=== PATIENT | male | born 1950 | race Caucasian/White ===

== ENCOUNTER 2017-08-03 07:45 | Inpatient (IN) ==
[2017-07-28 14:44] LABS: Appearance,Urine CLEAR; Bilirubin,Urine NEG (NEG); Color,Urine YELLOW; Glucose,Urine (UA) NEGATIVE (NEG); Leukocyte Esterase,Urine NEG /uL (NEG); Protein,Urine NEG (NEG); Specific Gravity,Urine 1.014 (1.000-1.035); Urine Blood NEG mg/dL (<0.03); Urobilinogen,Urine NEG (NEG)
[2017-07-28 16:18] LABS: Basophils # (Auto) 0.1 K/mcL (0.0-0.3); Basophils % (Auto) 0.9 % (0.0-2.0); Eosinophils # (Auto) 0.1 K/mcL (0.0-0.7); Eosinophils % (Auto) 2.2 % (0.0-7.0); Granulocytes % (Auto) 75.2 % (38.0-78.0); Lymphocytes # (Auto) 1.1 K/mcL (1.5-4.8); Mean Cell Volume 95.3 fL (80.0-100.0); Mean Corpuscular Hemoglobin 32.4 pg (26.0-34.0); Monocytes # (Auto) 0.4 K/mcL (0.1-0.9); Monocytes % (Auto) 5.7 % (1.0-12.0); Platelet Count 243 K/mcL (140-440); RBC 4.58 M/mcL (4.50-5.90); Red Cell Distribution Width 12.8 % (11.5-14.5)
[2017-07-28 17:05] LABS: Blood Urea Nitrogen 19 mg/dl (8-23)
[~2017-08-03 07:45] MED LIST: CELECOXIB 200 MG CAPSULE PO SCH; KETOROLAC 30 MG, ROPIVACAINE HCL/PF 49.5 ML, EPINEPHrine 0.5 MG, 0.9 % SODIUM CHLORIDE ... IV SCH; PREGABALIN 75 MG CAPSULE PO SCH; ceFAZolin 1 GM VIAL IV SCH; oxyCODONE 10 MG TAB.ER.12H PO SCH
[2017-08-03] MEDS ORDERED: SCOPOLAMINE 1 PATCH PATCH TOPICAL ONE (07:57)
[2017-08-03] MEDS ORDERED: LIDOCAINE HCL/PF 100 MG/5 ML SYRINGE IV ONE (11:00)
[2017-08-03] MEDS ORDERED: fentaNYL 100 MCG/2 ML VIAL IV ONE ×2 (11:00→13:43)
[2017-08-03] MEDS ORDERED: MIDAZOLAM 5 MG/5 ML VIAL IV ONE (11:00)
[2017-08-03] MEDS ORDERED: PROPOFOL 200 MG/20 ML VIAL IV ONE (11:00)
[2017-08-03] MEDS ORDERED: BUPIVACAINE PF 0.5% 30 ML VIAL IJ ONE (11:00)
[2017-08-03] MEDS ORDERED: ONDANSETRON 4 MG/2 ML VIAL IV ONE (11:00)
[2017-08-03] MEDS ORDERED: GLYCOPYRROLATE 0.2 MG/ML VIAL IV ONE (11:00)
[2017-08-03] MEDS ORDERED: TRANEXAMIC ACID 1,000 MG/10 ML VIAL IV ONE ×2 (11:00→12:47)
[2017-08-03] MEDS ORDERED: ONDANSETRON 4 MG/2 ML VIAL IV PRN ×2 (12:18→12:47)
[2017-08-03] MEDS ORDERED: ACETAMINOPHEN 1,000 MG/100 ML BOTTLE IV ONE (12:18)
[2017-08-03] MEDS ORDERED: MEPERIDINE 25 MG/ML SYRINGE IV PRN (12:18)
[2017-08-03] MEDS ORDERED: IPRATROPIUM/ALBUTEROL 3 ML AMPUL.NEB NEB PRN (12:18)
[2017-08-03] MEDS ORDERED: METHOCARBAMOL 1,000 MG/10 ML VIAL IV PRN (12:18)
[2017-08-03] MEDS ORDERED: PROMETHAZINE 25 MG/ML VIAL IV PRN (12:18)
[2017-08-03] MEDS ORDERED: LACTATED RINGERS 1,000 ML IV SCH (12:30)
[2017-08-03] MEDS ORDERED: MAGNESIUM HYDROXIDE 30 ML ORAL.SUSP PO PRN (12:47)
[2017-08-03] MEDS ORDERED: FLEETS ADULT ENEMA PR PRN (12:47)
[2017-08-03] MEDS ORDERED: BISACODYL 10 MG SUPP.RECT PR PRN (12:47)
[2017-08-03] MEDS ORDERED: BENZOCAINE/MENTHOL 1 LOZENGE PO PRN (12:47)
[2017-08-03] MEDS ORDERED: POLYETHYLENE GLYCOL 3350 17 GM PACKET PO PRN (12:47)
--- NOTE | 2017-08-03 12:47 | Brief Operative Note ---
Date of procedure: 08/03/17 Pre-op diagnosis: severe R knee DJD Post-op diagnosis: same Procedure: Right robotic assisted total knee arthroplasty Grafts/Implants: Yes (Cynthia Triathlon 6 CR femur, 6 tibia, 9 insert, 36 patella) Anesthesia: spinal, GLMA Findings: severe multicompartment arthritis Complications: none Surgeon: Jordin Santiago Van Loader: Viktor Vivar Estimated blood loss (cc): 30 Specimens Removed/Pathology: none sent Condition: stable Disposition: PACU
[2017-08-03] MEDS ORDERED: CALCIUM CARBONATE 500 MG TAB.CHEW PO PRN (12:51)
[2017-08-03] MEDS: fentaNYL 100 MCG/2 ML VIAL IV PRN ×2 (13:42→13:44)
--- NOTE | 2017-08-03 14:26 | Operative Note ---
DATE OF OPERATION: 08/03/2017 PREOPERATIVE DIAGNOSIS: Right knee severe osteoarthritis. POSTOPERATIVE DIAGNOSIS: Right knee severe osteoarthritis. PROCEDURE PERFORMED: Right robotic-assisted total knee arthroplasty placing a Triathlon size 6 cruciate retaining femoral component, size 6 tibial baseplate, a 9 mm X3 tibial insert with a 36 mm patellar button. SURGEON: Jordin Santiago MD RESPIRATORY THERAPY ASSISTANT: Kenneth Vivar PA-C ANESTHESIA: Spinal plus general. DRAINS: None. SPECIMENS: Bone cuts, which were discarded. BLOOD LOSS: 50 mL COMPLICATIONS: None. POSTOPERATIVE CONDITION: Stable. INDICATIONS FOR SURGERY: This is a 67-year-old male who has had longstanding bilateral knee pain. Radiographs showed severe medial compartment [id number] osteoarthritis with varus deformity. FINDINGS AT SURGERY: He had a full-thickness cartilage defect off of the weightbearing surface of the lateral femoral condyle, severe effusion. Post-implantation showed good overall alignment, stability, and patellar tracking. PROCEDURE IN DETAIL: The patient had been seen preoperatively. Informed consent had been obtained after discussion of risks and benefits of surgery. Risks including, but not limited to, bleeding; infection, possibly requiring implant removal and prolonged IV antibiotics; injury to nerves, blood vessels, and other surrounding structures; anesthetic risks; incomplete or no resolution of symptoms; stiffness; swelling; pain; instability; DVT and pulmonary embolus risks; and the possibility of needing further revision surgery. He understood these risks and wished to proceed. Correct operative site was marked and then patient was taken to the operating room. General anesthesia was induced. The right lower extremity was carefully prepped and draped in normal sterile fashion and timeout was performed verifying patient name, operative site, and plan. Esmarch was used to exsanguinate the extremity and tourniquet was inflated. A midline incision was made with a scalpel through skin and subcutaneous tissue. IrriSept was irrigated and then a medial parapatellar arthrotomy made. A large joint effusion was aspirated. We then inspected the joint and noted the lateral wear, so elected to proceed with a total knee instead of a partial. Femoral and tibial checkpoints were placed. We also made two stab incisions over the tibia and two over the femur and placed two bicortical pins in each and connected the arrays. We then used the green probe to do our medial and lateral malleolar checks as well as did our hip center of rotation and double checked our checkpoints. After this was completed, we used the blue probe to do our mapping. After mapping was completed, we removed osteophytes. We then proceeded to check our flexion, extension gaps. Due to his severe varus deformity we were having challenges balancing. I did have to do a fairly extensive deep release of the MCL. We were able to finally get 17 mm gaps medially and laterally in flexion. We then used the robotic arm to proceed with our bone cuts. After this was completed, the tibia was prepared after actually rotating as bone coverage would allow with Boss reamer and keel punch. We then elevated the femur and removed posterior osteophytes with a curved osteotome. We then placed our femoral trial and drilled our peg holes and then went ahead and trialled. We liked our component position and tracking so we went ahead and opened implants. Trials were removed. IrriSept was irrigated and after a minute we pulse lavaged with saline. Antibiotic cement was being mixed and we cemented the tibia after cleaning the surface with CO2. We repeated this with the femur. We then went ahead and used the 9 insert trial and placed the knee into extension. The patellar button was then cemented. While cement was hardening, we filled the joint with IrriSept and then injected pain cocktail in the pericapsular subcutaneous tissues. Once cement hardened we went ahead and removed our checkpoints and our tibial and femoral pins. The 9 insert trial was removed and the definitive insert was opened. We injected posterior capsule with pain cocktail and the definitive insert was impacted. The knee was taken into 45 degrees flexion. Interrupted #2 FiberWire [id number]-[id number] were used around the superior quadrant of the patella, interrupted #1 Vicryl [id number] around the inferior quadrant, running #1 Vicryl for patellar tendon and quad tendon. Final IrriSept irrigation was done, after a minute final pulse lavage, then 2-0 Monocryl for subcutaneous tissues and then trent for skin. Xeroform sterile dressings were applied. Tourniquet was released. The patient was awakened, extubated, and transferred to recovery in stable condition. TEO:pretty Job ID: [id number] Doc ID: [id number] Jordin Santiago MD
[2017-08-03] MEDS: 0.9 % SODIUM CHLORIDE 1,000 ML IV SCH (14:29)
[2017-08-03] MEDS: 0.9 % SODIUM CHLORIDE 10 ML SYRINGE IV SCH ×2 (14:29→20:38)
[2017-08-03] MEDS: HYDROcodone/APAP 10/325MG TABLET PO PRN (16:03)
--- NOTE | 2017-08-03 17:18 | XRay Report ---
CLINICAL INFORMATION: Postop total knee prostheses COMPARISON: None. FINDINGS: Total knee prostheses is anatomically aligned. No osseous abnormality. Moderate soft tissue swelling air seen as expected IMPRESSION: Negative Interpreted and Authenticated by: Baltazar Randall 08/03/17
[2017-08-03] MEDS ORDERED: SIMETHICONE 80 MG TAB.CHEW CHEWED PRN (18:00)
[2017-08-03] MEDS: ceFAZolin 1 GM VIAL IV SCH (18:36)
[2017-08-03] MEDS: KETOROLAC 30 MG/ML VIAL IV SCH (18:38)
[2017-08-03] MEDS: CALCIUM W/VIT D3 500 MG TABLET PO SCH (20:38)
[2017-08-03] MEDS: DOCUSATE SODIUM 100 MG CAPSULE PO SCH (20:38)
[2017-08-03] MEDS: ASPIRIN 325 MG ENTERIC COATED TABLET PO SCH (20:38)
[2017-08-03] MEDS: FISH OIL 1,000 MG CAPSULE PO SCH (20:38)
[2017-08-03] MEDS ORDERED: SENNOSIDES 1 TABLET PO SCH (21:00)
[2017-08-04] MEDS: KETOROLAC 30 MG/ML VIAL IV SCH ×2 (00:24→05:27)
[2017-08-04] MEDS: 0.9 % SODIUM CHLORIDE 1,000 ML IV SCH ×2 (00:34→09:56)
[2017-08-04] MEDS: ceFAZolin 1 GM VIAL IV SCH (02:15)
[2017-08-04] MEDS: HYDROcodone/APAP 10/325MG TABLET PO PRN ×2 (02:31→10:31)
[2017-08-04] MEDS: 0.9 % SODIUM CHLORIDE 10 ML SYRINGE IV SCH ×2 (02:36→05:27)
--- NOTE | 2017-08-04 07:52 | Discharge Summary ---
Providers - Providers Patient information: Note initiated : 08/04/17 at 7:50 am Service Date, if different from initiated Date: [] Patient: Arthur Krishna 67 y/o M admitted on 08/03/17 for Partial UNI Knee Blas vs Total Knee Arthroplasty . Chief Complaint: [] Discharge date: 08/04/17 Hospitalization Hospital course: Pt was admitted for a R TKA. Pt underwent the procedure on the day of admission. Pt spent on night on the floor for IV pain meds, IV abx, and PT. Pt discharged on post-op day 1 with appropriate pain meds and ASA for DVT prophylaxis. Will attend out-pt PT and f/u in 2 weeks. Discharge diagnosis: R Knee OA Exam - Exam Clean and dry: Yes Weight bearing status: as tolerated Ortho Discharge - TKA - Patient Instructions Diet: Regular Diet Activity: activity as tolerated Total Knee Protocol: For Total Knee: Start ROM BLU with stationary bike or rocking chair. Work on gaining full extension of knee. Posterior dislocation precautions provided. Hip abductor strengthening and gait training instructions provided. Apply Cryocuff as instructed. Dressing Care: May shower in 2 days Patient Education: Aspirin (By mouth), Tramadol (By mouth), Tamsulosin (By mouth), Total Knee Replacement (DC) Additional Instructions: Discharge Instructions: Do the exercises at home that physical therapy gave you throughout the day. Wear comfortable clothing for physical therapy. Weight bearing as tolerated. Take your prescription, photo ID, insurance cards, and current medication list with you to your first physical therapy appointment. Keep your physical therapy appointment you have already scheduled. Take your prescription to pickle maker any medication or equipment (such as walker, crutches, toilet riser or C.P.M.) You have the Aquacel Ag dressing, leave in place for 7 days then remove. If dressing becomes soiled (turns black), remove and use gauze 4x4 dressing and silvasorb ointment and change daily. Keep incision clean and dry. You may start showering on post op day #2. To avoid constipation while taking any narcotic pain medication, take an over the counter stool softener/laxative. Use your Cryocuff or ice packs as directed, on for 20 minutes at a time throughout the day. This and elevation will help with pain and swelling. Call your physician for fevers above 100.5 or pain not controlled by medication. Your prescriptions are with your discharge information. Some medications were electronically transmitted to your pharmacy of choice. - Follow Up Plan Follow Up Appointments: Jordin Santiago MD [Physician] - 08/18/17 1:00 pm Disposition: Home, Self-Care Prognosis: Good Rehab Potential: Good Overall status at discharge: patient is progressing back to baseline - Orders For Discharge Prescriptions: Aspirin [Ecotrin] 325 mg PO BID #30 tab.ec Tamsulosin HCl [Flomax] 0.4 mg PO QDAY #10 cap.er.24h traMADol [Ultram] 50 - 100 mg PO Q4-6HP PRN #100 tab PRN Reason: Pain Additional Discharge Orders: Physical Therapy at Discharge - TKA Location: Determined By Patient Walker Location: Determined By Patient Pending Studies Resuscitation Status Full Code Diet Regular Diet Start TueAugust 03 1249 Hydrocodone Bitart/Acetaminophen ([place] 10/325mg) 0 tab PO Q4HP PRN PRN Reason: PAIN LEVEL 3-6 Last Admin: 08/04/17 02:31 Dose: 1 tab Admin: 08/03/17 16:03 Dose: 2 tab Aspirin (Ecotrin) 325 mg PO BID [facility] Last Admin: 08/03/17 20:38 Dose: 325 mg Calcium/Vitamin D (Calcium W/Vit D3) 500 mg PO BID [facility] Last Admin: 08/03/17 20:38 Dose: Not Given Docusate Sodium (Colace) 100 mg PO BID [facility] Last Admin: 08/03/17 20:38 Dose: 100 mg Fish Oil (Fish Oil) 1,000 mg PO BID [facility] Last Admin: 08/03/17 20:38 Dose: Not Given Sodium Chloride (Sodium Chloride 0.9%) 1,000 mls @ 100 mls/hr IV .Q10H [facility] Last Infusion: 08/04/17 02:31 Dose: 0 mls/hr Admin: 08/04/17 00:34 Dose: Not Given Admin: 08/03/17 14:29 Dose: 100 mls/hr Ketorolac Tromethamine (Toradol) 30 mg IV Q6 [facility] Stop: 08/05/17 12:01 Last Admin: 08/04/17 05:27 Dose: 30 mg Admin: 08/04/17 00:24 Dose: 30 mg Admin: 08/03/17 18:38 Dose: 30 mg Ondansetron HCl (Zofran) 4 mg IV Q4HP PRN PRN Reason: Nausea And Vomiting Last Admin: 08/04/17 02:36 Dose: 4 mg Senna (Senokot) 2 tab PO HS TIFF Last Admin: 08/03/17 20:37 Dose: 2 tab Sodium Chloride (Saline Flush) 10 ml IV Q8 TIFF Last Admin: 08/04/17 05:27 Dose: 10 ml Admin: 08/04/17 02:36 Dose: 10 ml Admin: 08/03/17 20:38 Dose: Not Given Admin: 08/03/17 14:29 Dose: Not Given Shift Summary 08/04/17 04:47 Shift Summary by Beatriz Benitez ambulated felix w/FWW and SBA gait steady, up multiple times to BR voiding clear yellow urine, PVR [phone] EACH time, pt denies discomfort or urge to void but will void 425mls then another 225-250mls each time, teaching provided about follow-up with urology possibly needed and need for flomax to assist with bladder emptying d/t current history of BPH and urine retention, pt stated understanding and would like flomax ordered prior to discharge if possible, medicated with scheduled toradol and hydrocodone x1 tonight, pt stated narcotics cause severe constipation and would like tramadol ordered as discharge pain medication if possible, SL to LFA flushed and patent, dsg to rt. knee CDI, very pleasant and cooperative with sonia VSS Initialized on 08/04/17 04:47 - END OF NOTE
[2017-08-04] MEDS ORDERED: MAGNESIUM OXIDE 400 MG TABLET PO SCH (09:00)
[2017-08-04] MEDS ORDERED: [UNRECOGNIZED DRUG - OTHER] PO SCH (09:00)
[2017-08-04] MEDS ORDERED: CHLORTHALIDONE 25 MG TABLET PO SCH (09:00)
[2017-08-04] MEDS ORDERED: VITAMIN E (DL,TOCOPHERYL ACET) 400 UNIT CAPSULE PO SCH (09:00)
[2017-08-04] MEDS ORDERED: PSYLLIUM HUSK 6 GM PACKET PO SCH (09:00)
[2017-08-04] MEDS ORDERED: MULTIVIT,THER IRON,CA,FA & MIN 1 TABLET PO SCH (09:00)
[2017-08-04] MEDS: ASPIRIN 325 MG ENTERIC COATED TABLET PO SCH (09:53)
[2017-08-04] MEDS: DOCUSATE SODIUM 100 MG CAPSULE PO SCH (09:53)
[2017-08-04] MEDS: CALCIUM W/VIT D3 500 MG TABLET PO SCH (09:54)
[2017-08-04] MEDS: FISH OIL 1,000 MG CAPSULE PO SCH (09:54)
== END 2017-08-04 11:45 | disposition home or self-care (01) | DRG 470 ==
LOC: SUR 07:45 → MEDSUR 13:58
PROVIDERS: ADMIT Orthopaedic Surgery; ATTEND Orthopaedic Surgery

== ENCOUNTER 2017-10-05 10:01 | Inpatient (IN) ==
[~2017-10-05 10:01] MED LIST changes: +0.9 % SODIUM CHLORIDE 9 ML, KETOROLAC 30 MG, ROPIVACAINE HCL/PF 49.5 ML, EPINEPHrine 0.... IJ SCH; -KETOROLAC 30 MG, ROPIVACAINE HCL/PF 49.5 ML, EPINEPHrine 0.5 MG, 0.9 % SODIUM CHLORIDE ... IV SCH
[2017-10-05] MEDS ORDERED: GLYCOPYRROLATE 0.2 MG/ML VIAL IV ONE (14:35)
[2017-10-05] MEDS ORDERED: ONDANSETRON 4 MG/2 ML VIAL IV ONE (14:35)
[2017-10-05] MEDS ORDERED: LIDOCAINE HCL/PF 100 MG/5 ML SYRINGE IV ONE (14:35)
[2017-10-05] MEDS ORDERED: fentaNYL 100 MCG/2 ML VIAL IV ONE (14:35)
[2017-10-05] MEDS ORDERED: MIDAZOLAM 2 MG/2 ML VIAL IV ONE (14:35)
[2017-10-05] MEDS ORDERED: PROPOFOL 200 MG/20 ML VIAL IV ONE (14:35)
[2017-10-05] MEDS ORDERED: TRANEXAMIC ACID 1,000 MG/10 ML VIAL IV ONE (14:35)
[2017-10-05] MEDS ORDERED: KETAMINE 100 MG/ML ML IV ONE (14:35)
[2017-10-05] MEDS ORDERED: ROPIVACAINE HCL/PF 20 ML VIAL IJ ONE (14:35)
[2017-10-05] MEDS ORDERED: ACETAMINOPHEN 1,000 MG/100 ML BOTTLE IV ONE (15:12)
[2017-10-05] MEDS ORDERED: NALOXONE HCL 0.4 MG/ML VIAL IV PRN (15:12)
[2017-10-05] MEDS ORDERED: MEPERIDINE 25 MG/ML SYRINGE IV PRN (15:12)
[2017-10-05] MEDS ORDERED: FLUMAZENIL 0.1 MG/ML ML IV PRN (15:12)
[2017-10-05] MEDS ORDERED: LACTATED RINGERS 250 ML IV PRN (15:12)
[2017-10-05] MEDS ORDERED: METHOCARBAMOL 1,000 MG/10 ML VIAL IV PRN (15:12)
[2017-10-05] MEDS ORDERED: BENZOCAINE/MENTHOL 1 LOZENGE PO PRN ×2 (15:12→16:15)
[2017-10-05] MEDS ORDERED: KETOROLAC 15 MG/ML VIAL IV PRN (15:12)
[2017-10-05] MEDS ORDERED: ONDANSETRON 4 MG/2 ML VIAL IV PRN ×2 (15:12→16:15)
[2017-10-05] MEDS ORDERED: IPRATROPIUM/ALBUTEROL 3 ML AMPUL.NEB NEB PRN (15:12)
[2017-10-05] MEDS ORDERED: fentaNYL 100 MCG/2 ML VIAL IV PRN (15:12)
[2017-10-05] MEDS ORDERED: LACTATED RINGERS 1,000 ML IV SCH (15:15)
[2017-10-05] MEDS ORDERED: HYDROcodone/APAP 10/325MG TABLET PO PRN (16:15)
[2017-10-05] MEDS ORDERED: HYDROmorphone 2 MG/ML VIAL IV PRN (16:15)
[2017-10-05] MEDS ORDERED: POLYETHYLENE GLYCOL 3350 17 GM PACKET PO PRN (16:15)
[2017-10-05] MEDS ORDERED: TRANEXAMIC ACID 1,000 MG/10 ML VIAL IV SCH (16:15)
[2017-10-05] MEDS ORDERED: MAGNESIUM HYDROXIDE 30 ML ORAL.SUSP PO PRN (16:15)
[2017-10-05] MEDS ORDERED: BISACODYL 10 MG SUPP.RECT PR PRN (16:15)
[2017-10-05] MEDS ORDERED: FLEETS ADULT ENEMA PR PRN (16:15)
--- NOTE | 2017-10-05 16:15 | Brief Operative Note ---
Date of procedure: 10/05/17 Pre-op diagnosis: Left knee severe osteoarthritis Post-op diagnosis: same Procedure: Left robotic assisted total knee arthroplasty Grafts/Implants: Yes (Cynthia Triathlon CR 6 femur, 6 tibia, 13mm insert, 36 patella) Anesthesia: spinal, GLMA Findings: severe arthritis Complications: none Surgeon: Jordin Santiago Wireless Telegrapher: Viktor Vivar Estimated blood loss (cc): 30 Specimens Removed/Pathology: none sent Condition: stable Disposition: PACU
--- NOTE | 2017-10-05 17:22 | XRay Report ---
CLINICAL INFORMATION: Postop total knee prostheses COMPARISON: None. FINDINGS: Total knee prostheses is anatomically aligned. No osseous abnormality. Periarticular gas and soft tissue thickening seen as expected IMPRESSION: Negative Interpreted and Authenticated by: Baltazar Randall 10/05/17
[2017-10-05] MEDS ORDERED: PROMETHAZINE 25 MG/ML VIAL IV ONE (17:23)
[2017-10-05] MEDS ORDERED: PROMETHAZINE 25 MG/ML VIAL ONE (17:27)
[2017-10-05] MEDS: 0.9 % SODIUM CHLORIDE 1,000 ML IV SCH (18:02)
[2017-10-05] MEDS: KETOROLAC 15 MG/ML VIAL IV SCH ×2 (18:10→23:21)
[2017-10-05] MEDS ORDERED: SENNOSIDES 1 TABLET PO SCH (21:00)
[2017-10-05] MEDS: ASPIRIN 325 MG ENTERIC COATED TABLET PO SCH (21:44)
[2017-10-05] MEDS: DOCUSATE SODIUM 100 MG CAPSULE PO SCH (21:44)
[2017-10-05] MEDS: ceFAZolin 1 GM VIAL IV SCH (22:03)
[2017-10-05] MEDS: 0.9 % SODIUM CHLORIDE 10 ML SYRINGE IV SCH (22:04)
[2017-10-05] MEDS: TAMSULOSIN 0.4 MG CAPSULE PO SCH (22:13)
[2017-10-05] MEDS: traMADol 50 MG TABLET PO PRN (23:46)
[2017-10-06] MEDS: 0.9 % SODIUM CHLORIDE 1,000 ML IV SCH (02:33)
[2017-10-06] MEDS: KETOROLAC 15 MG/ML VIAL IV SCH (05:08)
[2017-10-06] MEDS: ceFAZolin 1 GM VIAL IV SCH (05:08)
[2017-10-06] MEDS: 0.9 % SODIUM CHLORIDE 10 ML SYRINGE IV SCH (05:08)
--- NOTE | 2017-10-06 07:48 | Discharge Summary ---
Providers - Providers Patient information: Note initiated : 10/06/17 at 7:46 am Service Date, if different from initiated Date: [] Patient: Arthur Krishna 67 y/o M admitted on 10/05/17 for Arthroplasty Knee Total - Left Blas. Chief Complaint: [] Discharge date: 10/06/17 Hospitalization Hospital course: Pt was admitted for a total knee arthroplasty. Pt was admitted on the day of the procedure and discharged on post-op day 1. Pt will take ASA for DVT prophylaxis. Will attend out-pt PT. f/u at [facility] in 2 weeks. Discharge diagnosis: L knee OA Exam - Exam Clean and dry: Yes Weight bearing status: as tolerated Ortho Discharge - TKA - Patient Instructions Diet: Regular Diet Activity: activity as tolerated Total Knee Protocol: For Total Knee: Start ROM BLU with stationary bike or rocking chair. Work on gaining full extension of knee. Posterior dislocation precautions provided. Hip abductor strengthening and gait training instructions provided. Apply Cryocuff as instructed. Dressing Care: May shower in 2 days - Follow Up Plan Follow Up Appointments: Viktor Vivar PA-C [Physician Labor Gang Supervisor] - 10/20/17 1:10 pm Disposition: Home, Self-Care Prognosis: Good Rehab Potential: Good Overall status at discharge: patient is progressing back to baseline - Orders For Discharge Prescriptions: Aspirin [Ecotrin] 325 mg PO BID #30 tab.ec HYDROcodone/APAP 10/325MG [[place] 10-325Mg] 1 - 2 tab PO Q4HP PRN #90 tab PRN Reason: Pain Level 3-6 Pending Studies Resuscitation Status Full Code Diet Regular Diet Start TueOct 05 1616 Aspirin (Ecotrin) 325 mg PO BID [facility] Last Admin: 10/05/17 21:44 Dose: 325 mg Docusate Sodium (Colace) 100 mg PO BID [facility] Last Admin: 10/05/17 21:44 Dose: 100 mg Sodium Chloride (Sodium Chloride 0.9%) 1,000 mls @ 100 mls/hr IV .Q10H [facility] Last Admin: 10/06/17 02:33 Dose: Not Given Admin: 10/05/17 18:02 Dose: Ketorolac Tromethamine (Toradol) 15 mg IV Q6 [facility] Stop: 10/07/17 12:01 Last Admin: 10/06/17 05:08 Dose: 15 mg Admin: 10/05/17 23:21 Dose: 15 mg Admin: 10/05/17 18:10 Dose: 15 mg Senna (Senokot) 2 tab PO HS [facility] Last Admin: 10/05/17 21:44 Dose: 2 tab Sodium Chloride (Saline Flush) 10 ml IV Q8 [facility] Last Admin: 10/06/17 05:08 Dose: Not Given Admin: 10/05/17 22:04 Dose: Not Given Tamsulosin HCl (Flomax) 0.4 mg PO QDAY [facility] Last Admin: 10/05/17 22:13 Dose: 0.4 mg Tramadol HCl (Ultram) 50 - 100 mg PO Q4-6HP PRN PRN Reason: Pain Level < 3 Last Admin: 10/05/17 23:46 Dose: 100 mg Shift Summary 10/06/17 04:51 Shift Summary by Hernando Bassett on 2L O2. DANNIE wrap to left knee CDI. No complaints of numbness or tingling. No complaints of nausea. Minimal complaints of pain. Receiving scheduled Toradol and PRN Tramadol. Up to BR x2 w/FWW, gaitbelt and SBA. Straight cath @ 2245 for 725mL, Flowers cath placed @ 0200 for PVR >999mL after voiding 200mL. Pt stated he experienced urinary retention after last TKA, but did not need flowers placement. Plan to remove Flowers prior to shift changed. Pt is eager to discharge. will [place] coming from [place] him up. Initialized on 10/06/17 04:51 - END OF NOTE
[2017-10-06] MEDS: TAMSULOSIN 0.4 MG CAPSULE PO SCH (08:17)
[2017-10-06] MEDS: traMADol 50 MG TABLET PO PRN (08:17)
[2017-10-06] MEDS: ASPIRIN 325 MG ENTERIC COATED TABLET PO SCH (08:18)
[2017-10-06] MEDS: DOCUSATE SODIUM 100 MG CAPSULE PO SCH (08:18)
--- NOTE | 2017-10-18 10:04 | Operative Note ---
DATE OF OPERATION: 10/05/2017 PREOPERATIVE DIAGNOSIS: Left knee severe osteoarthritis. POSTOPERATIVE DIAGNOSIS: Left knee severe osteoarthritis. PROCEDURE PERFORMED: Left robotic-assisted total knee arthroplasty placing a Cynthia Triathlon 6 CR femur, 6 tibia, 13 tibial insert with a 36 mm patellar button. SURGEON: Jordin Santiago MD COMBAT ENGINEER: Kenneth Vivar PA-C ANESTHESIA: Spinal plus general. DRAINS: None. SPECIMENS: Bone cuts, which were discarded. BLOOD LOSS: 30 mL COMPLICATIONS: None. POSTOPERATIVE CONDITION: Stable. INDICATIONS FOR SURGERY: This is a 67-year-old male with longstanding worsening knee pain. Radiographs showed severe varus deformity of the knee. He had previously had a right total knee done by [facility] and wished to proceed with left. FINDINGS AT SURGERY: Severe varus deformity. Post implantation showed satisfactory stability, alignment, and patellar tracking. PROCEDURE IN DETAIL: The patient had been seen preoperatively. Informed consent had been obtained after discussion of risks and benefits of surgery. Risks including, but not limited to, bleeding; infection; injury to nerves, blood vessels other surrounding structures; anesthetic risks; incomplete or no resolution of symptoms; stiffness; swelling; instability; DVT and pulmonary embolus risks; and the possibility of needing further revision surgery. He understood and wished to proceed. Correct operative site was marked and patient received spinal anesthesia. He was then taken to the operating room and general anesthesia induced. Left lower extremity was carefully prepped and draped in normal sterile fashion. A timeout was performed verifying patient name, operative site, and plan. Esmarch was used to exsanguinate the extremity and tourniquet was inflated. A midline incision was made with scalpel through skin and subcutaneous tissue and then IrriSept was irrigated. A medial parapatellar arthrotomy was made and a subperiosteal exposure done of the anterior medial tibia and we released the MCL along its deep fibers around the posterior corner. We then removed fat pad and then cut our patella freehand after measuring it. Cut protector was placed. We then placed two pins in the femur and two in the tibia after making stab incisions. We then connected the arrays. We placed a femoral and tibial check points. We then checked our hip center of rotation and green probe was used to identify the malleoli, as well as double checked the check points. Blue probe was used to do our mapping and osteophytes were removed. The spoons were used to check our flexion, extension gaps and then we adjusted implants to give us symmetrical gaps in flexion and extension. We then used the robotic assistance to make our bone cuts and then placed our trials. The knee did require a little bit thicker insert to get good stability. We then prepared the patella and the patella tracked well. We went ahead and opened definitive implants. We irrigated with IrriSept, after removing the trial implants. Antibiotic cement was mixed. We used CO2 gun on the cut bone surfaces and then cemented the tibia followed by the femur. This was [place] with gentamycin. We then placed the trial insert and the knee was taken into extension and the patella cemented. While cement was hardening, we injected pain cocktail into the pericapsular and subcutaneous tissues. Checkpoints were removed and IrriSept was irrigated. We went ahead and removed our pins and then we removed the trial insert. Once cement had fully hardened, excess cement was removed with osteotome and then a posterior capsule was injected with pain cocktail. We then irrigated with IrriSept and after a minute pulse lavaged and impacted the 13 insert. The knee was then taken into 45 degrees of flexion. A #2 FiberWire [id number]-mi-koizzo were used around the superior quadrant of the patella, #1 Vicryl csuusz-an-voskbz around the inferior quadrant, running #1 Vicryl for patellar tendon and quad tendon. Final IrriSept irrigation was done, after a minute pulse lavage and then 2-0 Monocryl for subcutaneous and trent for skin. Xeroform sterile dressing applied. Tourniquet was released. The patient was awakened, extubated, and transferred to recovery in stable condition. TEO:pretty Job ID: [id number] Doc ID: [id number] Jordin Santiago MD
== END 2017-10-06 11:20 | disposition home or self-care (01) | DRG 470 ==
LOC: MEDSUR 10:01
PROVIDERS: ADMIT Orthopaedic Surgery; ATTEND Orthopaedic Surgery